=== PATIENT | male | born 1955 | race Caucasian/White ===

== ENCOUNTER 2019-04-27 14:01 | Emergency (ER) | payer OTHER ==
[~2019-04-27] VITALS: Ht 188 cm; Wt 95.3 kg
[2019-04-27 14:25] LABS: ABSOLUTE NEUTROPHILS 10.1 thou/uL (1.4-8.2); BASOPHILS 0.6 % (0.0-2.0); EOSINOPHILS 0.2 % (0.0-3.0); HEMOGLOBIN 15.4 gm/dL (14.0-18.0); LYMPHOCYTES 10.3 % (24.0-44.0); MCHC 33.5 g/dL (28.0-37.0); MCV 95.3 fL (80.0-100.0); MONOCYTES 3.9 % (1.0-8.0); PLATELET COUNT 220 thou/uL (150-400); RBC 4.82 mil/uL (4.50-6.00); RDW 12.9 % (10.5-14.5); WBC 11.9 thou/uL (4.0-11.0)
[2019-04-27 14:34] LABS: ANION GAP 11 mmol/L (7-16); BUN 17 mg/dL (7-18); CALCIUM 8.1 mg/dL (8.5-10.1); CHLORIDE 101 mmol/L (98-107); CO2 25 mmol/L (21-32); CREATININE 0.9 mg/dL (0.7-1.3); GLUCOSE 153 mg/dL (74-106); POTASSIUM 3.4 mmol/L (3.5-5.1); SODIUM 137 mmol/L (136-145)
[2019-04-27 14:44] LABS: ALBUMIN 4.2 g/dL (3.4-5.0); SGOT 20 U/L (15-37); SGPT 27 U/L (30-65); TOTAL BILIRUBIN 0.9 mg/dL (<0.1-1.0); TOTAL PROTEIN 7.9 g/dL (6.4-8.2); TROPONIN-I <0.06 ng/mL (<0.06)
[2019-04-27] MEDS ORDERED: MECLIZINE HCL25 M1 PO (16:31)
[2019-04-27] MEDS ORDERED: PREDNISONE 10 M10 M1 PO (16:31)
[2019-04-27] MEDS ORDERED: ONDANSETRON HCL4 M2 PO (16:31)
--- NOTE | 2019-04-27 16:32 | EKG ---
[facility] [place] [place] [address] ELECTROCARDIOGRAM REPORT Name: PAIGE THOMPSON Room #: [facility].#: [id number] Admission: 04/27/19 Attend Phys: Discharge: Date of : 51 Report #: [id number] THIS REPORT FOR: cc: Augusto Sanchez MD, Bryan W. MD Couchonnal, Luis F. MD ~ THIS REPORT FOR: //name// [facility] ED Test Date: 2019-04-27 Test Time: 14:29:08 Pat Name: PAIGE THOMPSON Department: Room: Gender: M [employer] Inspector: JUVENTINO : 1955 Requested By: Trinidad Morataya Order Number: [id number] MD: Michael Valera Measurements Intervals [place] Rate: 74 P: 63 [place]: 177 QRS: 34 QRSD: 109 T: 27 QT: 409 QTc: 454 Interpretive Statements Sinus rhythm Probable left atrial enlargement No previous ECG available for comparison Electronically Signed On 04-27-2019 16:31:49 [employer] by Michael Valera [email or web address] <ELECTRONICALLY SIGNED> By: Michael Valera MD 04/27/19 1631 D: [id number] Michael Valera MD /LIGIA
[2019-04-27 17:06] VITALS: BP 135/84
== END 2019-04-27 17:08 | disposition home or self-care (01) ==
LOC: ER 14:01
PROVIDERS: Physician Assistant
DX: H81.399 Other peripheral vertigo, unspecified ear (principal); R11.2 Nausea with vomiting, unspecified; H93.3X9 Disorders of unspecified acoustic nerve